=== PATIENT | male | born 1960 | race Caucasian/White ===

== ENCOUNTER 2024-05-06 13:46 | Outpatient (CLI) | payer OTHER, SELFPAY ==
--- NOTE | ~2024-05-06 | XR_ITS ---
EXAMINATION: XR abdomen/kub 1V DATE: 05/06/2024 14:02 INDICATION: Left ureteral stone. TECHNIQUE: A supine view of the abdomen on 2 radiographs was obtained. COMPARISON: CT abdomen and pelvis 04/01/2019, abdomen radiographs 04/01/2019 FINDINGS: There are no dilated loops of bowel. There are phleboliths in the pelvis. There is a modera te-sized hiatal hernia. IMPRESSION: 1. No visible urolithiasis. 2. Moderate-sized hiatal hernia. Reviewed, dictated and finalized at location A. FACTURING OPERATIONS MANAGER
--- OUTSIDE RECORDS SUMMARY | 2024-05-06 13:55 | XMS_ITS | Patient Health Record ---
Author Organization [facility] Address [address] [facility] [address] [place] [address] Care Team Providers Care Passenger Screener Name Role Phone Macario Patel MD Primary Care Provider Unavail able Krishna Burton Unavailable [phone] Dedra Joiner Unavailable [phone] Allergies Allergen (clinical drug ingredient) Drug/Non Drug Allergy documented on EMR Reaction Allergy Type Onset Date Status Penicillins rash Drug Allergy Activ e Results Component Value Reference Range Notes CMP: COMPLETE METABOLIC PANE L Reviewed date:03/30/2024 02:44:34 PM Interpretation: Performing Lab: Notes/Report: CBC With Differential/Platel et Reviewed date:03/30/2024 02:47:26 PM Interpretation: Performing Lab: Notes/Report: Reason For Referral No Information Medications Medication SIG (Take, Route, Frequency, Duration) Notes Start Date End Date Status PriLOSEC 20 MG 1 capsule Orally Onc e a day Active Mercaptopurine 50 MG TAKE 3 TABLETS BY MOUTH EVERY DAY for 90 Active OTC/Vitamins Claritin, Vit D, Vit B12 Active amLODIPine Besylate Active Mesalamine 1.2 GM TAKE 2 TABLETS BY MOUTH EVERY DAY for 90 Active Atorvastatin Calcium Active Celecoxib Active Immunizations Vaccine Route Administration Date Status Comme nts Influenza Vaccination Unknown 12/15/2017 Administered Social History Tobacco Use: Social History Observation Description Date Details (start date - stop date) Former Smoker NA - NA Tobacco Use/Smoking Question Answer Notes Are you a former smoker How long has it been since you last smoked? > 10 years Section Notes: Christianson, retired, , 3 children from a blended family Christianson, retired, , 3 children from a blended family Christianson, retired, , 3 children from a blended family Christianson, retired, , 3 children from a blended family Christianson, retired, , 3 children from a blended family Problems Problem Type SNOMED Code ICD Code Onset Dates Problem Status W/U Status Risk Notes Problem 27909051 Crohn's disease of small intestine with intestinal obstruction (K50.012) Active confirmed Problem 07512056 Crohns colitis, unspecified complication (K50.119) Active confirmed Problem 83460977 Crohn's disease of small intestine without complication (K50.00) Active confirmed Problem 734587457 History of colon polyps (Z86.010) Active confirmed Problem 696834313 Chronic GERD (K21.9) Active confirmed Maintained on Prilosec without any difficulties. Remote endoscopy revealed no evidence of Novoa's esophagus. He will become symptomatic without the medication. Problem 27602416 Crohns disease of both small and large intestine without complication (K50.80) Active confirmed History of Crohn's disease diagnosed in 1996. His last colonoscopy took place in October 2016 and revealed ileitis. Small bowel series was obtained at that time and was also normal. He has been maintained on mercaptopurine and Lialda without any difficulties. Labs obtained last week were normal. Problem Crohn's disease of large bowel (9509276) CC (Crohns colitis), without complications (K50.10) Active confirmed Problem 284499015 Hepatic steatosis (K76.0) Active confirmed Problem 408201089 Malabsorption (K90.9) Active confirmed Encounters Encounter Location Date Provider Diagnosis [facility], [address] [place] [address] 08/15/2023 Dedra Joiner Crohns disease of talita th small and large intestine without complication K50.80 [facility], [address] [place] [address] 08/15/2023 Krishna Burton [facility], [address] [place] [address] 03/30/2024 Krishna Micheal Assessments Encounter Date Diagnosis (ICD Code) Assessment Notes Treatment Notes Treatment Clinical Notes Section Notes 08/15/2023 Crohns disease of both small and large intestine without complication (ICD-10 - K50.80) History of Crohn's disease diagnosed in 1996. His last colonoscopy took place in October 2016 and revealed ileitis. Small bowel series was obtained at that time and was also normal. He has been maintained on mercaptopurine and Lialda without any difficulties. Labs obtained last week were normal. Plan Of Treatment Pending Test Test Name Order Date Colonoscopy 10/01/2016 Colonoscopy 11/24/2020 CMP: COMPLETE METABOLIC PANEL 12/19/2015 CBC With Differential/Platelet 6 Future Test Test Name Order Date CMP: COMPLETE METABOLIC PANEL 11/16/2023 CBC With Differential/Platelet 4 Insurance Providers Payer Name Payer Address Payer Phone Subscriber Number Group Number Insured Name Patient Relationship to Insured Coverage Start Date Coverage End Date [facility] Choice/ choice Plus [id number] [address] [place] [address] [id number] Kalee Ritchie Spouse - patient is the spouse of the insured Medical (General) History Medical History History ICD Code GERD Crohn's Disease Colon Polyps Kidney Stones Shingles Skin Cancer Hypertension Surgical History Surgery Date(Month/Year) Colonoscopy:Ileitis at the anastomosis.O therwise normal. 01/2021 Flexible sigmoidoscopy:Statu s post subtotal colectomy, ileocolonic anastomosis at 25 centimeters.Mild erythema to the rectosigmoid colon. 01/2013 EGD: Normal exam. 07/2007 Ileocolonic Resection Kidney stones/cystoscopy Knee surgery
--- OUTSIDE RECORDS SUMMARY | 2024-05-06 13:55 | XMS_ITS | Encounter Summary ---
[facility] Address [address] [place] [address] Care Team Providers Care Design Release Engineer Name Role Phone Unavailable Primary Care Provider Unavailabl e Encounter Details Date Type Department Care Team (Late st Contact Info) Description 12/22/2001 Outpatient Historical [facility] Bia Rubio MD [address] [facility] [address] [place] [address] REGIONAL ENTERITIS NOS (CMS/HCC) (Primary Dx) Social History Tobacco Use Types Packs/Day Years Used Date Smoking Tobacco: Never Assessed Sex and Gender Information Value Date Recorded Sex Assigned at Not on file Legal Sex Male 4:47 AM [employer]ICULAR AC[employer] Gender Identity Not on file Sexual Orientation Not on file documented as of this encounter Plan of Treatment Not on file documented as of this encounter Visit Diagnoses Diagnosis Regional enteritis of unspecified site (CMS/HCC)- Primary Regional enteritis of unspecified site documented in this encounter
--- OUTSIDE RECORDS SUMMARY | 2024-05-06 13:55 | XMS_ITS | Clinical Summary ---
Author Organization [facility] Address [facility] [place] [address] Care Team Providers Care Commercial Loan Processor Name Role Phone Macario Patel MD Primary Care Provider [phone] Allergies Active Allergy Reactions Criticality Noted Date Comments Milk (Cow) Diarrhea 04/29/2012 Penicillins Rash Low 04/29/2012 Medications mercaptopurine 50 MG tablet Take 1.5 tablets (75 mg total) by mouth daily. 0 04/22/19 19 Active mesalamine EC (LIALDA) 1.2 g Tab EC tablet Take 2 tablets (2.4 g total) by mouth daily with breakfast. Active vitamin D3, cholecalciferol, 5000 UNITS capsule Take 1 capsule (125 mcg total) by mouth daily. Active omeprazole 20 MG capsule Take 1 capsule (20 mg total) by mouth daily. Active aspirin 81 MG chewable tabletIndications :Hypertension, benign,Mixed hyperlipidemia Chew 1 tablet (81 mg total) by mouth daily. 30 tablet 5 07/10/19 19 Active clobetasol (TEMOVATE) 0.05 % ointment Apply topically 2 (two) times daily. 06/07/19 23 Active celecoxib (CELEBREX) 100 MG capsuleIndication s:Chronic pain Take 1 capsule (100 mg total) by mouth daily. 90 capsule 3 05/22/19 24 Active Cyanocobalamin (VITAMIN B-12) [address] 1 tablet under the tongue daily. Active loratadine (CLARITIN) 10 MG tablet Take 1 tablet (10 mg total) by mouth daily. Active atorvastatin (LIPITOR) 20 MG tabletIndications :Mixed hyperlipidemia Take 1 tablet (20 mg total) by mouth nightly at bedtime. 08/26/19 24 Active sildenafil (VIAGRA) 50 MG tablet Take 1 tablet (50 mg total) by mouth as needed for Erectile Dysfunction. 02/10/20 24 Active tamsulosin (FLOMAX) 0.4 MG Cap Take 1 capsule (0.4 mg total) by mouth daily. 30 capsule 03/23/19 25 Active HYDROcodone-aceta minophen (NORCO) 5-325 MG tabletIndications :Acute Pain < 3 Day Supply Take 1 tablet by mouth every 6 (six) hours as needed. Indications: Acute Pain < 3 Day Supply 12 tablet 03/23/19 25 Active ondansetron (ZOFRAN-ODT) 4 MG disintegrating tablet Take 1 tablet (4 mg total) by mouth every 8 (eight) hours as needed. 20 tablet 03/23/19 25 Active atorvastatin (LIPITOR) 10 MG tabletIndications :Mixed hyperlipidemia TAKE 1 TABLET BY MOUTH EVERY DAY 90 tablet 04/21/19 25 Active amLODIPine (NORVASC) 5 MG tabletIndications :Hypertension, benign TAKE 1 TABLET BY MOUTH EVERY DAY 90 tablet 1 04/21/19 25 Active amLODIPine (NORVASC) 5 MG tabletIndications :Hypertension, benign take 1 tablet by mouth every day 90 tablet 1 10/20/19 24 025 Discontinued Active Problems Problem Noted Date Diagnosed Date Kidney stone 03/26/2024 Chronic GERD 12/15/2019 Kidney stones 02/09/2019 Class 1 obesity due to exces s calories with serious comorbidity and body mass index (BMI) of 31.0 to 31.9 in adult 02/09/2019 Hypertension, benign 10/06/2017 Vitamin D deficiency 12/05/2015 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 [address] [place] [address] Blair Barber MD Butler, Sarah Elyse S, CRISTIAN 03/26/2024 1:45 PM OUTSOLE FLEXER - 03/26/2024 3:14 PM OUTSOLE FLEXER Surgery [facility] [place] [address] Kofi Mcrae MD CYSTOSCOPY URETEROSCOPY, STONE EXTRACTION, LASER LITHOTRIPSY, LEFT URETERAL STENT PLACEMENT 03/26/2024 4:24 AM OUTSOLE FLEXER - 03/27/2024 10:55 AM OUTSOLE FLEXER [facility] [address] [place] [address] Bea Lora MD Tran, Isaac T, MD Kruse, Sumit Polanco, DO Discharge Disposition: Home or Self Care (Routine Discharge) 03/25/2024 8:46 PM OUTSOLE FLEXER - 03/26/2024 2:43 AM OUTSOLE FLEXER Emergency [facility] Emergency Room [address] [place] [address] Butch Newton MD Flank Pain Discharge Disposition: Transfer to Acute Care Hospital 03/25/2024 Travel 03/23/2024 1:30 PM OUTSOLE FLEXER - 03/23/2024 2:48 PM OUTSOLE FLEXER Emergency [facility] Emergency Room [address] [place] [address] Annette Loya NP Flank Pain (Left flank pain ) Discharge Disposition: Home or Self Care (Routine Discharge) 03/23/2024 Travel 03/08/2024 Telephone [facility] Family & Internal Medicine [address] [phone] Macario Patel MD Advice 02/19/2024 8:20 AM OUTSOLE FLEXER Office Visit [facility] Family & Internal [address] [phone] Macario Patel MD Follow Up; Hyperlipidemia; Hypertension; Vitamin D Deficiency 02/19/2024 Travel from Last 3 Months Immunizations Name Administration Dates Next Due Arexvy Respiratory Syncytial Virus (RSV, adjuvanted) 0.5 mL, PF 02/19/2024 FLUCELVAX (ccIIV3, TRIVALENT, 0.5mL) 01/15/2024 Fluzone 6 Months+ Quad (0.5 mL Prefilled Syringe) 01/09/2023,01/03/2022,01/12/2021 Influenza (Generic) 12/24/2018,02/15/2016 Influenza Adult (Generic) 01/03/2020,12/04/2017 PFIZER COVID-19 (12+) MRNA, LNP-S, PF, HOLDEN-SUCROSE, 30 MCG/0.3 ML (COMIRNATY) 02/19/2024 PFIZER COVID-19 BIVALENT (12 +) mRNA, LNP-S, PF, 30 MCG/0.3 ML DOSE 01/03/2022 Tdap (Adacel) 07/10/2022 Family History Medical History Relation Comments Heart Disease Brother Cancer Father skin Heart Disease Father Lung Cancer Father Breast Cancer Mother Relation Status Comments Brother Father Mother Alive Sister Alive Social History Tobacco Use Types Packs/Day Years Used Date Smoking Tobacco: Former Cigarettes 1 15 0 03/17/1975 - 03/17/1990 Passive Smoke Exposure: Never Smokeless Tobacco: Never Tobacco Cessation:Counseling Given: Yes Alcohol Use Standard Drinks/Week Comments No 0 (1 standard drink = 0.6 oz pur e alcohol) [facility] [employer] Answer Date Recorded In the past 12 months has [facility] [employer], oil, or water [employer] threatened to shut off services in your home? No 03/26/2024 Humiliation, Afraid, Rape, and Kick questionnair e Answer Date Recorded Within the last year, have y ou been afraid of your partner or ex-partner? No 03/26/2024 Within the last year, have y ou been humiliated or emotionally abused in other ways by your partner or ex-partner? No Within the last year, have y ou been kicked, hit, slapped, or otherwise physically hurt by your partner or ex-partner? No 03/26/2024 Within the last year, have y ou been raped or forced to have any kind of sexual activity by your partner or ex-partner? No 03/26/2024 AUDIT-C Answer Date Recorded Frequency of Alcohol Consumption Never 07/09/2018 Average Number of Drinks Not on file 019 Frequency of Binge Drinking Not on file 06/16 Overall Financial Resource Strain (CARDIA) Answe r Date Recorded How hard is it for you to pa y for the very basics like food, housing, medical care, and heating? Not hard at all 03/26/2024 PHQ-2 Answer Date Recorded Patient Health Questionnaire-2 Score 0 08/14/2023 Hunger Vital Sign Answer Date Recorded Within the past 12 months, y ou worried that your food would run out before you got the money to buy more. Never true 03/26/19 25 Within the past 12 months, t he food you bought just didn't last and you didn't have money to get more. Never true 03/26/2024 PRAPARE - Transportation Answer Date Re corded In the past 12 months, has l ack of transportation kept you from medical appointments or from getting medications? No 03/17 In the past 12 months, has l ack of transportation kept you from meetings, work, or from getting things needed for daily living? No 03/26/2024 Housing Stability Vital Sign Answer Carlos e Recorded In the last 12 months, was t here a time when you were not able to pay the mortgage or rent on time? No 03/26/2024 In the past 12 months, how m any times have you moved where you were living? 0 03/26/2024 At any time in the past 12 m [facility], were you homeless or living in a usp (including now)? No 03/26/2024 Sex and Gender Information Value Date Recorded Sex Assigned at Male 07/09/2018 8:33 AM CDT Legal Sex Male 5:25 PM CDT Gender Identity Male 07/09/2018 8:33 AM CDT Sexual Orientation Straight 07/09/2018 8: 33 AM CDT Last Filed Vital Signs Vital Sign Reading Time Taken Comments Blood Pressure 144/99 03/27/2024 7:28 AM OUTSOLE FLEXER Pulse 63 03/27/2024 7:28 AM OUTSOLE FLEXER Temperature 36.4 C (97.5 F) 03/27/2024 7:28 AM OUTSOLE FLEXER Respiratory Rate 16 03/27/2024 7:28 AM OUTSOLE FLEXER Oxygen Saturation 94% 03/27/2024 7:28 AM OUTSOLE FLEXER Inhaled Oxygen Concentration - - Weight 97.6 kg (215 lb 2.7 oz) 03/26/2024 1:00 P M OUTSOLE FLEXER Height 177.8 cm (5' 10 ) 03/26/2024 1:00 PM OUTSOLE FLEXER Body Mass Index 30.87 03/26/2024 1:00 PM OUTSOLE FLEXER Plan of Treatment Upcoming Encounters Date Type Department Care Team (Late st Contact Info) Description 08/19/2024 7:20 AM CDT Laboratory Only [facility] Family & Internal Medicine [address] [phone] Macario Patel MD [address] [place] [phone] 08/26/2024 8:20 AM CDT Office Visit [facility] Family & Internal [address] [phone] Macario Patel MD [address] [place] [phone] Health Maintenance Due Date Last Done Comments Annual Physical 02/27/1963 Zoster Vaccines (1 of 2) 02/27/2010 PHQ-2 (Physician [place]) 03/17/2024 08/14/2023 DTaP, Tdap and Td Vaccines (2 - Td or Tdap) 07/10/2032 07/10/2022 Colorectal Cancer Screening Colonoscopy (10 Years) 03/05/2033 03/05/2023 Hepatitis C Completed 01/09/2023 Influenza Adult Completed 01/15/2024, 12/16, 01/03/2022, Additional history exists COVID-19 Vaccine Completed 02/19/2024, , 07/03/2020, Additional history exists RSV Immunization or 60+ Years Completed 02/19/2024 Meningococcal B Vaccine Aged Out No l onger eligible based on patient's age to complete this topic Meningococcal Vaccine Aged Out No alli mirella eligible based on patient's age to complete this topic Pneumococcal Vaccine: Pediatrics (0 to 5 Years) and At-Risk Patients (6 to 64 Years) Aged Out No longer eligible based on patient's age to complete this topic RSV Immunizations Under 20 Months Aged Out No longer eligible based on patient's age to complete this topic Goals Goal Patient Goal Type Associated Problems Recent Progress Patient-Stated? Author Family - family caregiver with be involved in care transitions and discharge planning Lifestyle No Maria Luisa Dallas, TRANSFER TABLE OPERATORmaterial handling supervisor Devices Implanted Type Area Premium Service Representative Device Identifier Shelf Expiration Date Model / Serial / Lot Stent Ureteral 6fr 26cm Pigtl Crv Taper Tip Bldr Mrk - [id number] Implanted:Qty : 1 on 03/26/2024 by Kofi Mcrae MD at [facility] Stent Left: Ureter waygum [id number] 09/01/2026 [id number] / / [id number] Procedures Procedure Name Priority Date/Time Associated Diagnosis Comments BASIC METABOLIC PANEL Routine 03/27/2024 4:15 AM OUTSOLE FLEXER CBC W/DIFF AUTOMATED Routine 03/27/2024 4:15 AM OUTSOLE FLEXER SURG XR RETROGRD UROGRAPHY Routine 03/26/2024 3:07 PM OUTSOLE FLEXER STONE ANALYSIS Routine 03/26/2024 2:59 PM OUTSOLE FLEXER CYSTOSCOPY URETEROSCOPY, STONE EXTRACTION, HOLMIUM LASER, STENT 03/26/2024 2:08 PM OUTSOLE FLEXER LEFT URETERAL STONE MAGNESIUM Routine 03/26/2024 6:16 AM OUTSOLE FLEXER COMPREHENSIVE METABOLIC PANEL Routine 03/26/2024 6:16 AM OUTSOLE FLEXER CBC W/DIFF AUTOMATED Routine 03/26/2024 6:16 AM OUTSOLE FLEXER HC URINALYSIS AUTO W/O MICRO STAT 03/25/2024 9:[address] ABD+PEL KIDNEY STONE STAT 03/25/2024 9:26 PM OUTSOLE FLEXER COMPREHENSIVE METABOLIC PANEL STAT 03/25/2024 9:10 PM OUTSOLE FLEXER CBC W/DIFF AUTOMATED STAT 03/25/2024 9:10 PM OUTSOLE FLEXER URINE BACTERIA CULTURE STAT 1:56 PM OUTSOLE FLEXER HC URINALYSIS AUTO W/O MICRO STAT 03/23/2024 1:56 PM OUTSOLE FLEXER LIPASE STAT 03/23/2024 1:56 PM OUTSOLE FLEXER COMPREHENSIVE METABOLIC PANEL STAT 03/23/2024 1:56 PM OUTSOLE FLEXER CBC W/DIFF AUTOMATED STAT 03/23/2024 1:[address] ABD+PEL KIDNEY STONE STAT 03/23/2024 1:54 PM OUTSOLE FLEXER COLONOSCOPY GENERIC (SCAN ORDER) 03/05/2023 HEPATITIS C ANTIBODY Routine 01/09/2023 9:28 AM CDT Need for hepatitis C screening test from Last 3 Months or Most Recently Relevant to Health Maintenance Results * (ABNORMAL) BASIC METABOLIC PANEL (03/27/2024 4:15 AM OUTSOLE FLEXER) GLUCOSE 84 70 - 99 MG/DL 03/27/2024 5:02 AM OUTSOLE FLEXER [facility] BUN 25(H) 7 - 18 MG/DL 03/27/2024 5:02 AM OUTSOLE FLEXER [facility] CREATININE S/P/B 0.82 0.7 - 1.3 MG/DL 03/27/2024 5:02 AM OUTSOLE FLEXER [facility] SODIUM S/P/B 137 136 - 145 MMOL/L 03/27/2024 5:02 AM OUTSOLE FLEXER [facility] POTASSIUM S/P/B 3.8 3.5 - 5.1 MMOL/L 03/27/2024 5:02 AM [facility] CHLORIDE S/P/B 105 97 - 115 MMOL/L 03/27/2024 5:02 AM [facility] CO2 25.9 21 - 32 MMOL/L 03/27/2024 5:02 AM [facility] CALCIUM S/P/B 8.8 8.5 - 10.1 MG/DL 03/27/2024 5:02 AM [facility] ANION GAP 6.1 2 - 10 MMOL/L 03/27/2024 5:02 AM [facility] BUN CREATININE RATIO 30.5(H) 6 - 26 03/27/2024 5:02 AM [facility] GFR ESTIMATE >90 >90 ML/MIN/1.7 3 M2 03/27/2024 5:02 AM [facility] Comment: NOTE: eGFR is not calculated for patients <18 years of age or gender unknown. This is an estimated GFR calculation using the new CKD EPI creatinine equation without race and so does not require a correction factor for race. This estimated GFR should not be used for calculating drug doses. 03/27/2024 4:15 AM [facility] Pernell Westfall MD LABORATORY Final Result [facility] [address] [place] [address], * (ABNORMAL) CBC W/DIFF AUTOMATED (03/27/2024 4:15 AM OUTSOLE FLEXER) Only the most recent of4 resultswithin the time period is included. WBC 6.20 4.5 - 11.0 x10'3/uL 03/27/2024 4:31 AM [facility] RBC 4.36(L) 4.70 - 6.10 x10'6/uL 03/27/2024 4:31 AM [facility] HGB 13.7(L) 14.0 - 18.0 G/DL 03/27/2024 4:31 AM [facility] HCT 40.6(L) 43.0 - 54.0 % 03/27/2024 4:31 AM [facility] MCV 93.1 80.0 - 94.0 FL 03/27/2024 4:31 AM [facility] MCH 31.4(H) 27.0 - 31.0 PG 03/27/2024 4:31 AM [facility] MCHC 33.7 32.0 - 36.0 G/DL 03/27/2024 4:31 AM [facility] RDW 14.0 11.5 - 14.5 % 03/27/2024 4:31 AM [facility] PLT 164 130 - 400 x10'3/uL 03/27/2024 4:31 AM [facility] MPV 9.9 9.3 - 12.2 FL 03/27/2024 4:31 AM [facility] DIFFERENTIAL TYPE AUTOMATED DIFFERENTIAL 03/27/2024 4:31 AM [facility] NEUTROPHILS % 72.5 % 03/27/2024 4:31 AM [facility] LYMPHOCYTES % 12.7 % 03/27/2024 4:31 AM [facility] MONOCYTES % 11.9 % 03/27/2024 4:31 AM [facility] EOSINOPHILS 2.1 % 03/27/2024 4:31 AM [facility] BASOPHILS 0.5 % 03/27/2024 4:31 AM [facility] IMMATURE GRANS % 0.3 % 03/27/19 4:31 AM [facility] ABS. NEUTROPHILS 4.49 1.80 - 7.70 x10'3/uL 03/27/2024 4:31 AM OUTSOLE FLEXER [facility] ABS. LYMPHOCYTES 0.79(L) 1.00 - 4.80 x10'3/uL 03/27/2024 4:31 AM OUTSOLE FLEXER [facility] ABS. MONOCYTES 0.74 0.30 - 0.82 x10'3/uL 03/27/2024 4:31 AM OUTSOLE FLEXER [facility] ABS. EOSINOPHILS 0.13 0.04 - 0.54 x10'3/uL 03/27/2024 4:31 AM OUTSOLE FLEXER [facility] ABS. BASOPHILS 0.03 0.01 - 0.08 x10'3/uL 03/27/2024 4:31 AM OUTSOLE FLEXER [facility] ABS. IMMATURE GRANULOCYTES 0.02 0.00 - 0.49 x10'3/uL 03/27/2024 4:31 AM OUTSOLE FLEXER [facility] 03/27/2024 4:15 AM OUTSOLE FLEXER Pernell Westfall MD LABORATORY Final Result [facility] [address] [place] [address], [place] [phone] * SURG XR RETROGRD UROGRAPHY (03/26/2024 3:07 PM OUTSOLE FLEXER) Anatomical Region Laterality Modality Abdomen Radiographic Barbara ging 03/26/2024 3:09 PM OUTSOLE FLEXER Impressions 03/26/2024 3:09 PM OUTSOLE FLEXER Impression: No radiologic interpretation will be issued. The report and documentation of this exam will reside in the patient's permanent medical record and in the attending physician's procedure note. Ordered By: KOFI MCRAE Interpreted By: Rene Dunham MD, 03/26/2024 3:09 PM Narrative 03/26/2024 3:09 PM OUTSOLE FLEXER [place] [address] FLUOROSCOPY CONTROL ONLY Procedure Note Rene Dunham MD - 03/26/2024 [place] [address] FLUOROSCOPY CONTROL ONLY Impression: No radiologic interpretation will be issued. The report and documentationof this exam will reside in the patient's permanent medical record and inthe attending physician's procedure note. Ordered By: KOFI MCRAE Interpreted By: Rene Dunham MD, 03/26/2024 3:09 PM Kofi Mcrae MD IMAGES ONLY Final Result * STONE ANALYSIS (03/26/2024 2:59 PM OUTSOLE FLEXER) SOURCE KIDNEY STONE 03/26/2024 3:01 PM OUTSOLE FLEXER [facility] STONE ANALYSIS COMPONENT REPORT 04/01/2024 6:10 PM OUTSOLE FLEXER [employer] Comment: Calcium Oxalate Monohydrate (Whewellite) 90% Calcium Oxalate Dihydrate (Weddellite) 10% Unable to photograph, tiny stone submitted. STONE ANALYSIS WEIGHT 0.001 g 04/01/2024 6:10 PM OUTSOLE FLEXER [employer]NA[employer] Comment: This test was developed and its analytical performance characteristics have been determined by [employer]. It has not been cleared or approved by FDA. This assay has been validated pursuant to the CLIA regulations and is used for clinical purposes. Test performed by [employer] [id number] [place] [address] Lumber Grader: Kanwal Addison MD,PHD,CRISTOPHER Test Reported by Lizzeth Ulloa, [facility], [address] [place], [place] Josue Mejia M.D., Ph.D., Director of Laboratories , [facility] [id number] STONE CALCULUS SPECIMEN / Unknown 03/26/2024 2:59 PM OUTSOLE FLEXER Kofi Mcrae MD BODY FLUIDS AND STOOLS ORDERABL ES Final Result [employer] [facility] [address] [place], [place] , [place] [phone] [facility] [address] [place] [id number], [place] [phone] * (ABNORMAL) COMPREHENSIVE METABOLIC PANEL (03/26/2024 6:16 AM OUTSOLE FLEXER) Only the most recent of3 resultswithin the time period is included. GLUCOSE 95 70 - 99 MG/DL 03/26/2024 6:57 AM [facility] BUN 26(H) 7 - 18 MG/DL 03/26/2024 6:57 AM [facility] CREATININE S/P/B 1.17 0.7 - 1.3 MG/DL 03/26/2024 6:57 AM [facility] SODIUM S/P/B 138 136 - 145 MMOL/L 03/26/2024 6:57 AM [facility] POTASSIUM S/P/B 3.8 3.5 - 5.1 MMOL/L 03/26/2024 6:57 AM [facility] CHLORIDE S/P/B 108 97 - 115 MMOL/L 03/26/2024 6:57 AM [facility] CO2 25.4 21 - 32 MMOL/L 03/26/2024 6:57 AM [facility] CALCIUM S/P/B 8.9 8.5 - 10.1 MG/DL 03/26/2024 6:57 AM [facility] BILIRUBIN TOTAL S/P/B 1.6(H) 0.2 - 1.2 MG/DL 03/26/2024 6:57 AM [facility] Comment: THIS ASSAY IS NOT RECOMMENDED FOR PATIENTS UNDERGOING TREATMENT WITH ELTROMBOPAG DUE TO THE POTENTIAL FOR FALSELY ELEVATED RESULTS. TOTAL PROTEIN S/P/B 6.8 6.4 - 8.2 G/DL 03/26/2024 6:57 AM [facility] ALBUMIN S/P/B 3.2(L) 3.4 - 5.0 G/DL 03/26/2024 6:57 AM [facility] AST 23 15 - 37 U/L 03/26/2024 6:57 AM [facility] ALT 36 16 - 60 U/L 03/26/2024 6:57 AM [facility] ALKALINE PHOSPHATASE S/P/B 50 50 - 136 U/L 03/26/2024 6:57 AM [facility] ANION GAP 4.6 2 - 10 MMOL/L 03/26/2024 6:57 AM [facility] BUN CREATININE RATIO 22.2 6 - 26 03/26/2024 6:57 AM [facility] A/G RATIO 0.9(L) 1.0 - 2.0 RATIO 03/26/2024 6:57 AM [facility] GFR ESTIMATE 70(L) >90 ML/MIN/1.7 3 M2 03/26/2024 6:57 AM [facility] Comment: NOTE: eGFR is not calculated for patients <18 years of age or gender unknown. This is an estimated GFR calculation using the new CKD EPI creatinine equation without race and so does not require a correction factor for race. This estimated GFR should not be used for calculating drug doses. 03/26/2024 6:16 AM OUTSOLE FLEXER Bea Lora MD LABORATORY Final Re sult Performing Organization Address City/[facility]/ZIP Co de Phone Number [facility] [address] [place] [address], [place] [phone] * MAGNESIUM (03/26/2024 6:16 AM OUTSOLE FLEXER) MAGNESIUM 2.2 1.8 - 2.4 MG/DL 03/26/2024 6:57 AM OUTSOLE FLEXER [facility] 03/26/2024 6:16 AM OUTSOLE FLEXER Bea Lora MD LABORATORY Final Yuridia rousseaut Performing Organization Address [facility] Co de Phone Number [facility] [address] [place] [address], [place] [phone] * (ABNORMAL) URINALYSIS (03/25/2024 9:30 PM OUTSOLE FLEXER) Only the most recent of2 resultswithin the time period is included. COLOR (U) YELLOW 03/25/2024 9:52 PM OUTSOLE FLEXER [facility] TRANSPARENCY CLEAR 03/25/2024 9:52 PM OUTSOLE FLEXER [facility] SPECIFIC GRAVITY (U) 1.025 1.003 - 1.030 03/25/2024 9:52 PM OUTSOLE FLEXER [facility] U PH 7.0 5.0 - 9.0 03/25/2024 9:52 PM OUTSOLE FLEXER [facility] LEUKOCYTES (U) NEGATIVE NEGATIVE 03/25/2024 9:52 PM OUTSOLE FLEXER [facility] NITRITES NEGATIVE NEGATIVE 03/25/2024 9:52 PM [facility] PROTEIN RANDOM (U) 1+(A) NEGATIVE 03/25/2024 9:52 PM OUTSOLE FLEXER [facility] GLUCOSE (U) NORMAL NORMAL 03/25/2024 9:52 PM OUTSOLE FLEXER [facility] KETONES MG/DL (U) 1+(A) NEGATIVE 03/25/2024 9:52 PM OUTSOLE FLEXER [facility] UROBILINOGEN NORMAL NORMAL MG/DL 03/25/2024 9:52 PM OUTSOLE FLEXER [facility] BILIRUBIN (U) NEGATIVE NEGATIVE 03/25/2024 9:52 PM OUTSOLE FLEXER [facility] BLOOD (U) 2+(A) NEGATIVE 03/25/2024 9:52 PM OUTSOLE FLEXER [facility] MUCUS PRESENT 03/25/2024 9:52 PM OUTSOLE FLEXER [facility] WBC/HPF 0-5 0 - 5 /HPF 03/25/2024 9:52 PM OUTSOLE FLEXER [facility] RBC/HPF 10-20 0 - 5 /HPF 03/25/2024 9:52 PM OUTSOLE FLEXER [facility] COMMENT (U) URINE RESULTS 03/25/2024 9:52 PM OUTSOLE FLEXER [facility] URINE SPECIMEN OBTAINED BY CLEAN CATCH PROCEDURE / Unknown 03/25/2024 9:30 PM OUTSOLE FLEXER us Butch Newton MD URINE ORDERABLES Final Result Performing Organization Address City/State/[facility] Co de Phone Number [facility] [address] [place] [address], * CT ABD+PEL KIDNEY STONE (03/25/2024 9:26 PM OUTSOLE FLEXER) Only the most recent of2 resultswithin the time period is included. Anatomical Region Laterality Modality Abdomen Computed Tomogra phy 03/25/2024 9:29 PM OUTSOLE FLEXER Impressions 03/25/2024 9:40 PM OUTSOLE FLEXER IMPRESSION: 1. Mild-moderate left hydroureteronephrosis with obstructing left distal ureteral stone, 4 mm. Findings are similar to CT 03/23/2024. Associated urinary tract infection is possible and clinical correlation is recommended. 2. Moderate-large colonic stool burden adjacent to area of prior resection. 3. Additional findings as above. Referred By: Interpreted By: Krishan Kovacs MD, 03/25/2024 9:29 PM Narrative 03/25/2024 9:40 PM OUTSOLE FLEXER [address] [address] [place] [address] EXAMINATION: CT Abdomen and Pelvis without contrast EXAM DATE/TIME: 03/25/2024 9:09 PM REASON FOR EXAM: 64 years of age, Male, with L flank pain, recent renal stone COMPARISON: CT abdomen pelvis 03/23/2024 TECHNIQUE: Axial CT images of the abdomen were obtained without the use of IV contrast agent. Subsequent coronal and sagittal reformatted sequences are created for evaluation. A dose lowering technique was used for this procedure, which may include, but is not limited to, dose reduction technique, automated exposure control, iterative reconstruction, ALARA (As Low As Reasonably Achievable), or Image Gently techniques. FINDINGS: Lower chest: No mass or airspace consolidation is seen in the visualized lung bases. No pleural effusion is seen. No cardiomegaly. Large hiatal hernia. Liver/biliary: The liver is steatotic and smooth in surface contour. No definite focal liver lesions are seen. Gallbladder is unremarkable. No biliary dilatation is seen. Pancreas/adrenals/spleen: Unremarkable. Genitourinary: Mild bilateral nonspecific perinephric stranding. There is mild/moderate left hydroureteronephrosis with obstructing stone in the left distal ureter measuring 4 mm, similar to prior. Punctate left nephrolithiasis. No definite renal mass lesion is seen. The urinary bladder is within normal limits. The prostate is enlarged. Bowel: Postoperative changes in the colon. Moderate-large colonic stool burden adjacent to area of prior resection. No bowel obstruction or inflammatory change is seen in the visualized aspects. There is no evidence of appendicitis. Peritoneum: No free fluid is seen. No free air is seen. Lymph nodes: No lymphadenopathy is seen. Musculoskeletal: No acute fracture or suspicious osseous lesion is seen. Procedure Note Krishan Kovacs MD - 03/25/2024 [facility] [address] [place] [address] EXAMINATION: CT Abdomen and Pelvis without contrast EXAM DATE/TIME: 03/25/2024 9:09 PM REASON FOR EXAM: 64 years of age, Male, with L flank pain, recent renalstone COMPARISON: CT abdomen pelvis 03/23/2024 TECHNIQUE: Axial CT images of the abdomen were obtained without the useof IV contrast agent. Subsequent coronal and sagittal reformattedsequences are created for evaluation. A dose lowering technique was usedfor this procedure, which may include, but is not limited to, dosereduction technique, automated exposure control, iterative reconstruction,ALARA (As Low As Reasonably Achievable), or Image Gently techniques. FINDINGS: Lower chest: No mass or airspace consolidation is seen in the visualizedlung bases. No pleural effusion is seen. No cardiomegaly. Large hiatalhernia. Liver/biliary: The liver is steatotic and smooth in surface contour. Nodefinite focal liver lesions are seen. Gallbladder is unremarkable. Nobiliary dilatation is seen. Pancreas/adrenals/spleen: Unremarkable. Genitourinary: Mild bilateral nonspecific perinephric stranding. There ismild/moderate left hydroureteronephrosis with obstructing stone in theleft distal ureter measuring 4 mm, similar to prior. Punctate leftnephrolithiasis. No definite renal mass lesion is seen. The urinarybladder is within normal limits. The prostate is enlarged. Bowel: Postoperative changes in the colon. Moderate-large colonic stoolburden adjacent to area of prior resection. No bowel obstruction orinflammatory change is seen in the visualized aspects. There is noevidence of appendicitis. Peritoneum: No free fluid is seen. No free air is seen. Lymph nodes: No lymphadenopathy is seen. Musculoskeletal: No acute fracture or suspicious osseous lesion is seen. IMPRESSION: 1. Mild-moderate left hydroureteronephrosis with obstructing left distalureteral stone, 4 mm. Findings are similar to CT 03/23/2024. Associatedurinary tract infection is possible and clinical correlation isrecommended. 2. Moderate-large colonic stool burden adjacent to area of priorresection. 3. Additional findings as above. Referred By: Interpreted By: Krishan Kovacs MD, 03/25/2024 9:29 PM Butch Newton MD CT Final Result * CULTURE URINE (03/23/2024 1:56 PM OUTSOLE FLEXER) SPEC DESCRIPTION URINE CLEAN CATCH 03/23/2024 1:56 PM OUTSOLE FLEXER [facility] SPECIAL REQUESTS NO SPECIAL REQUEST 03/23/2024 1:56 PM OUTSOLE FLEXER [facility] CULTURE RESULT NO GROWTH 2 DAYS 03/26/2024 6:44 AM OUTSOLE FLEXER [facility] URINE SPECIMEN OBTAINED BY CLEAN CATCH PROCEDURE / Unknown 03/23/2024 1:56 PM OUTSOLE FLEXER 03/23/2024 1:58 PM OUTSOLE FLEXER Annette Loya NP MICROBIOLOGY - GENERAL ORDE RABLES Final Result Performing Organization Address City/[facility]/ZIP Co de Phone Number [facility] [address] [place] [address], [place] [phone] [facility] [address] [place] [address], * LIPASE (03/23/2024 1:56 PM OUTSOLE FLEXER) Pathologist [facility] LIPASE 65 13 - 75 UNITS/L 03/23/2024 2:25 PM OUTSOLE FLEXER [facility] 03/23/2024 1:56 PM OUTSOLE FLEXER Annette Loya NP LABORATORY Final Resul t [facility] [address] [place] [address], [place] [phone] * COLONOSCOPY GENERIC (SCAN ORDER) (03/05/2023) 03/05/2023 [facility] Scanned SCANNING Final Resu lt * HEPATITIS C ANTIBODY (01/09/2023 9:28 AM CDT) HEPATITIS C AB NON-REACTI VE NON-REACT JANETH 01/09/2023 6:48 PM CDT [facility] Comment: ANTIBODIES TO HCV NOT DETECTED. DOES NOT EXCLUDE THE POSSIBILITY OF EXPOSURE TO HCV. 01/09/2023 9:28 AM CDT Macario Patel MD LABORATORY Final Result Performing Organization Address City/State/[facility] Co de Phone Number [facility] [address] [place] [address], [phone] from Last 3 Months or Most Recently Relevant to Health Maintenance Insurance [facility] Advance Directives * Full Code (Latest Code Status on File) Date Activated Date Inactivated Comments 03/26/2024 4:24 AM 03/27/2024 12:55 PM Care Teams Commercial Loan Processor Relationship Specialty Start Date End Date Macario Patel MD [address] [phone] PCP - General 03/23/11
--- OUTSIDE RECORDS SUMMARY | 2024-05-06 13:55 | XMS_ITS | Encounter Summary ---
Author Organization [facility] Address [address] [place] [address] Care Team Providers Care Health Policy Analyst Name Role Phone Unavailable Primary Care Provider Unavailabl e Encounter Details Date Type Department Care Team (Late st Contact Info) Description 04/08/2005 Outpatient Historical [facility] Bia Rubio MD [address] [place] [address] REG ENTERITIS, LG INTEST (CMS/HCC) (Primary Dx) Social History Tobacco Use Types Packs/Day Years Used Date Smoking Tobacco: Never Assessed Sex and Gender Information Value Date Recorded Sex Assigned at Not on file Legal Sex Male 4:47 AM RN FLIGHT Gender Identity Not on file Sexual Orientation Not on file documented as of this encounter Plan of Treatment Not on file documented as of this encounter Visit Diagnoses Diagnosis Regional enteritis of large intestine (CMS/HCC)- Primary Regional enteritis of large intestine documented in this encounter
--- OUTSIDE RECORDS SUMMARY | 2024-05-06 13:55 | XMS_ITS ---
Author Organization [employer], [facility] Address [address] [place] [address] Care Team Providers Care Space Control Supervisor Name Role Phone Macario Patel MD Primary Care Provider Unavail Krishna Rodriguez Unavailable [phone] REASON FOR VISIT Awaiting pts labs from PCP Encounters Encounter Location Date Provider Diagnosis [facility], [facility] [address] [place] [address] 08/15/2023 Krishna Burton Plan Of Treatment No Information Progress Notes * Myke RITCHIE HDOB:1960 (63 yo M)Acc No.[id number]:08/15/2023 Patient: Myke Vaughn :1960 A ge:63 Y S ex:Male Address:[address], [place] [address] * true * Date: Generated for Printi ng/Faxing/eTransmitting on: 0 05/06/2024 01:55 PM UTILITY AIRCREWMAN
--- OUTSIDE RECORDS SUMMARY | 2024-05-06 13:55 | XMS_ITS | Encounter Summary ---
Author Organization [facility] Address 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 Gender Identity Not on file Sexual Orientation Not on file documented as of this encounter Plan of Treatment Not on file documented as of this encounter Procedures Procedure Name Priority Date/Time Associated Diagnosis Comments PATHOLOGY Routine 07/04/2008 1:12 PM CDT documented in this encounter Results * PATHOLOGY (07/04/2008 1:12 PM CDT) FINAL REPORT [address] [address] Patient: ANCA RITCHIE : 1960 Procedure Date: 07/04/2008 Accession Date: 07/04/2008 Case No: [id number] Ordering Dr: BIA RUBIO Case types AW, BW, FW, NW and SH are performed by [facility], [place], [place] SURGICAL PATHOLOGY & NON-GYNECOLOGIC CYTOPATHOLOGY REPORT DIAGNOSIS RECTUM, ENDOSCOPIC BIOPSY: - CHRONIC PROCTITIS WITH MODERATE ACTIVITY (SEE MICROSCOPIC). - INDEFINITE FOR DYSPLASIA. Specimen Description: Rectal biopsy. Operative Procedure: Colonoscopy. Patient Information/History/ Diagnosis: Chronic established inflammatory bowel disease. Rule out dysplasia. Gross: The specimen is received in a container labeled Anca Ritchie, rectal colon biopsy. It consists of 13 pieces of pringle tissue ranging from 0.1 to 0.4 cm in greatest dimension. The specimen is submitted entirely labeled A1. [facility] 07.04.2008 05:32 pm Microscopic: The slides are labeled [id number], Anca Ritchie Vilma. All mucosal samples are characterized by the presence of a generalized increase in chronic inflammatory cells throughout the lamina propria in association with crypt architectural distortion. Scattered neutrophils are present as well, predominantly within the lamina propria. No granulomas are identified. In approximately one-third of the mucosal samples, there is significant cytologic atypia. While the atypia is indefinite for dysplasia, it is probably reactive in nature. The atypia is more pronounced in the base of the crypts and is, in all instances, associated with a significant active inflammatory infiltrate. This case has been reviewed at intradepartmental case conference. [facility] 07.05.2008 11:37 am Staging Form: No. ELECTRONIC SIGNATURE FOR CHANCE LANG M.D.- 07/06/08 05:08 pm INTERFACE SYSTEM 07/04/2008 1:12 PM CDT us Bia Rubio MD PATHOLOGY/CYTOLOGY ORDERABLE S Final Result INTERFACE SYSTEM Refer to clinic/hospital department documented in this encounter Visit Diagnoses Not on filedocumented in this encounter
--- OUTSIDE RECORDS SUMMARY | 2024-05-06 13:55 | XMS_ITS ---
Author Organization [employer], [facility] Address [address] [place] [address] [address] [place] [address] Care Team Providers Care Retail Helper Name Role Phone Macario Patel MD Primary Care Provider Unavail Krishna Rodriguez Unavailable [phone] REASON FOR VISIT Attach labs Encounters Encounter Location Date Provider Diagnosis [facility], [address] [place] [address] 03/30/2024 Krishna Burton Plan Of Treatment No Information Progress Notes * Myke RITCHIE HDOB:1960 (64 yo M)Acc No.[id number]:03/30/2024 Patient: Myke WHATLEY :1960 A ge:64 Y S ex:Male Address:[address], [place] [address] * true * Date: Generated for Printi ng/Faxing/eTransmitting on: 0 05/06/2024 01:54 PM HVAC SHEET METAL INSTALLER
--- OUTSIDE RECORDS SUMMARY | 2024-05-06 13:55 | XMS_ITS | Clinical Summary ---
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
--- OUTSIDE RECORDS SUMMARY | 2024-05-06 13:55 | XMS_ITS | Encounter Summary ---
Author Organization [facility] Address 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
--- OUTSIDE RECORDS SUMMARY | 2024-05-06 13:55 | XMS_ITS ---
Author Organization [employer], [facility] Address [address] [place] [address] [address] [place] [address] Care Team Providers Care Biodiesel Operations Manager Name Role Phone Macario Patel MD Primary Care Provider Unavail able Krishna Burton Unavailable [phone] Dedra Joiner Unavailable [phone] Results Component Value Reference Range Notes CMP: COMPLETE METABOLIC PANE L Reviewed date:03/30/2024 02:44:34 PM Interpretation: Performing Lab: Notes/Report: CBC With Differential/Platel et Reviewed date:03/30/2024 02:47:26 PM Interpretation: Performing Lab: Notes/Report: REASON FOR VISIT needs labs Encounters Encounter Location Date Provider [facility], [address] [place] [address] 08/15/2023 Dedra Joiner Crohns disease of talita th small and large intestine without complication K50.80 Assessments Encounter Date Diagnosis (ICD Code) Assessment [...] last week were normal. Plan Of Treatment Future Test Test Name Order Date CMP: COMPLETE METABOLIC PANEL 11/16/2023 CBC With Differential/Platelet 4 Progress Notes * Myke RITCHIE HDOB:1960 (63 yo M)Acc No.[id number]:08/15/2023 Patient: Myke Vaughn :1960 A ge:63 Y S ex:Male Address:[facility] [address] [place] [address] Subjective: * Chief Complaints: * N eeds labs * Medical History: * Surgical History: * Hospitalization/Major Diagno stic Procedure: * Medications: Objective: Assessment: * Assessment: 1. C rohns disease of both small and large intestine without complication - K50.80 (Primary), History of Crohn's disease diagnosed in 1996. His last colonoscopy took place in October 2016 and revealed ileitis. Small bowel series was obtained at that time and was also normal. He has been maintained on mercaptopurine and Lialda without any difficulties. Labs obtained last week were normal. Plan: * Treatment: * Procedure Codes: * true * Date: Generated for Mitra faulkner/Sallie/Rafaelaitting on: 0 05/06/2024 01:55 PM ELECTRICAL SYSTEMS DESIGN ENGINEER
--- OUTSIDE RECORDS SUMMARY | 2024-05-06 13:56 | XMS_ITS | Encounter Summary ---
Author Organization [facility] Address [address] [place] [address] Care Team Providers Care Milk Runner Name Role Phone Unavailable Primary Care Provider Unavailabl e Encounter Details Date Type Department Care Team (Late st Contact Info) Description 05/15/2005 Outpatient Historical [facility] [address] 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
--- OUTSIDE RECORDS SUMMARY | 2024-05-06 13:56 | XMS_ITS | Encounter Summary ---
Author Organization [facility] Address [address] [place] [address] Care Team Providers Care Machinist Apprentice Wood Name Role Phone Unavailable Primary Care Provider Unavailabl e Encounter Details Date Type Department Care Team (Latest Contact Info) Description 06/05/2005 Inpatient Historical [facility] Fawad Deluna MD NO ADDRESS ON FILE Benign Neoplasm of Colon (Primary Dx) Social History Tobacco Use Types Packs/Day Years Used Date Smoking Tobacco: Never Assessed Sex and Gender Information Value Date Recorded Sex Assigned at Not on file Legal Sex Male 4:47 AM ANVILSMITH Gender Identity Not on file Sexual Orientation Not on file documented as of this encounter Plan of Treatment Not on file documented as of this encounter Procedures Procedure Name Priority Date/Time Associated Diagnosis Comments CBC WITH DIFFERENTIAL Routine 06/06/2005 4:45 AM ANVILSMITH CBC WITH DIFFERENTIAL Routine 06/06/2005 4:45 AM ANVILSMITH BASIC METABOLIC PANEL Routine 06/06/2005 4:45 AM ANVILSMITH CEA Routine 06/05/2005 4:36 AM ANVILSMITH CBC WITH DIFFERENTIAL Routine 05/15/2005 11:30 AM ANVILSMITH CBC WITH DIFFERENTIAL Routine 05/15/2005 11:30 AM ANVILSMITH COMPREHENSIVE METABOLIC PANEL Routine 05/15/2005 11:30 AM ANVILSMITH documented in this encounter Results * (ABNORMAL) CBC WITH DIFFERENTIAL (06/06/2005 4:45 AM ANVILSMITH) NEUTROPHILS 78(H) 45 - 70 % INTERFAC E SYSTEM LYMPHOCYTES 9(L) 16 - 45 % INTERFAC E SYSTEM MONOCYTES 13 3 - 13 % INTERFACE SYSTEM EOSINOPHILS 0 0 - 7 % INTERFAC E SYSTEM BASOPHILS 0 0 - 2 % INTERFACE SYSTEM NEUTROPHIL ABSOLUTE 7.74(H) 1.90 - 7.00 K/uL INTERFACE SYSTEM LYMPHOCYTE ABSOLUTE 0.85 0.70 - 4.50 K/uL INTERFACE SYSTEM MONOCYTE ABSOLUTE 1.28 0.10 - 1.30 K/uL INTERFACE SYSTEM EOSINOPHIL ABSOLUTE 0.00 0.00 - 0.70 K/uL INTERFACE SYSTEM BASOPHILS ABSOLUTE 0.00 0.00 - 0.20 K/uL INTERFACE SYSTEM 06/06/2005 4:45 AM ANVILSMITH Fawad Deluna MD HEMATOLOGY ORDERABLES Final Result Performing Organization Address [facility] Phone Number INTERFACE SYSTEM Refer to clinic/hospital department * (ABNORMAL) CBC WITH DIFFERENTIAL (06/06/2005 4:45 AM ANVILSMITH) Pathologist [facility] WBC 9.9(H) 4.0 - 9.8 K/uL INTERFACE SYSTEM RBC 3.82(L) 4.50 - 5.40 M/uL INTERFACE SYSTEM HEMOGLOBIN 11.7(L) 13.6 - 16.5 g/dL INTERFACE SYSTEM HEMATOCRIT 33.3(L) 40.0 - 48.0 % INTERFACE SYSTEM MCV 87.2 82.0 - 99.0 fL INTERFACE SYSTEM MCH 30.6 27.2 - 32.6 pg INTERFACE SYSTEM MCHC 35.1 31.5 - 35.5 % INTERFACE SYSTEM RDW 13.4 11.5 - 14.5 % INTERFACE SYSTEM RDW-STDEV 43.0 37.1 - 48.7 fL INTERFACE SYSTEM PLATELETS 179 140 - 350 K/uL INTERFACE SYSTEM MPV 10.2 9.3 - 12.4 fL INTERFACE SYSTEM 06/06/2005 4:45 AM ANVILSMITH Fawad Deluna MD HEMATOLOGY ORDERABLES Final Result Performing Organization Address [facility] Phone Number INTERFACE SYSTEM Refer to clinic/hospital department * (ABNORMAL) BASIC METABOLIC PANEL (06/06/2005 4:45 AM ANVILSMITH) GLUCOSE 130(H) 65 - 109 mg/dL INTERFACE SYSTEM CREATININE 1.0 0.5 - 1.3 mg/dL INTERFACE SYSTEM CALCIUM 7.9(L) 8.6 - 10.2 mg/dL INTERFACE SYSTEM BUN 18 6 - 20 mg/dL INTERFACE SYSTEM SODIUM 136 135 - 145 mmol/L INTERFACE SYSTEM POTASSIUM 4.6 3.5 - 4.9 mmol/L INTERFACE SYSTEM CHLORIDE 102 96 - 108 mmol/L INTERFACE SYSTEM CO2 27 22 - 30 mmol/L INTERFACE SYSTEM 06/06/2005 4:45 AM ANVILSMITH Fawad Deluna MD CHEMISTRY ORDERABLES Final Result Performing Organization Address [facility] Phone Number INTERFACE SYSTEM Refer to clinic/hospital department * CEA (06/05/2005 4:36 AM ANVILSMITH) Pathologist [facility] CEA 1.8 ng/mL INTERFACE SYSTEM Comment: Reference Range: Non-smoker: </= 3.4 ng/mL Smoker: </= 4.3 ng/mL Values from different assay methods cannot be used interchangeably becau se the concentration of CEA in any given specimen can vary due to differences in assay methods and reagent specificity. Serum CEA levels, regardless of value, should not be interpreted as absolute evidence of the presence or absence of malignant disease. 06/05/2005 4:36 AM ANVILSMITH Fawad Deluna MD CHEMISTRY ORDERABLES Final Result Performing Organization Address [facility] de Phone Number INTERFACE SYSTEM Refer to clinic/hospital department * COMPREHENSIVE METABOLIC PANEL (05/15/2005 11:30 AM ANVILSMITH) GLUCOSE 86 65 - 109 mg/dL INTERFACE SYSTEM CREATININE 1.0 0.5 - 1.3 mg/dL INTERFACE SYSTEM CALCIUM 9.3 8.6 - 10.2 mg/dL INTERFACE SYSTEM AST 27 12 - 38 U/L INTERFACE SYSTEM ALKALINE PHOSPHATASE 87 40 - 129 U/L INTERFACE SYSTEM BILIRUBIN TOTAL 0.5 0.2 - 1.0 mg/dL INTERFACE SYSTEM ALBUMIN 4.4 3.4 - 4.8 g/dL INTERFACE SYSTEM TOTAL PROTEIN 7.5 6.3 - 8.6 g/dL INTERFACE SYSTEM ALT 30 0 - 41 U/L INTERFACE SYSTEM BUN 17 6 - 20 mg/dL INTERFACE SYSTEM SODIUM 140 135 - 145 mmol/L INTERFACE SYSTEM POTASSIUM 4.2 3.5 - 4.9 mmol/L INTERFACE SYSTEM CHLORIDE 104 96 - 108 mmol/L INTERFACE SYSTEM CO2 29 22 - 30 mmol/L INTERFACE SYSTEM 05/15/2005 11:3 0 AM ANVILSMITH Fawad Deluna MD CHEMISTRY ORDERABLES Final Result Performing Organization Address [facility] Phone Number INTERFACE SYSTEM Refer to clinic/hospital department * CBC WITH DIFFERENTIAL (05/15/2005 11:30 AM ANVILSMITH) NEUTROPHILS 59 45 - 70 % INTERFAC E SYSTEM LYMPHOCYTES 28 16 - 45 % INTERFAC E SYSTEM MONOCYTES 10 3 - 13 % INTERFACE SYSTEM EOSINOPHILS 3 0 - 7 % INTERFAC E SYSTEM BASOPHILS 0 0 - 2 % INTERFACE SYSTEM NEUTROPHIL ABSOLUTE 2.63 1.90 - 7.00 K/uL INTERFACE SYSTEM LYMPHOCYTE ABSOLUTE 1.24 0.70 - 4.50 K/uL INTERFACE SYSTEM MONOCYTE ABSOLUTE 0.43 0.10 - 1.30 K/uL INTERFACE SYSTEM EOSINOPHIL ABSOLUTE 0.13 0.00 - 0.70 K/uL INTERFACE SYSTEM BASOPHILS ABSOLUTE 0.01 0.00 - 0.20 K/uL INTERFACE SYSTEM 05/15/2005 11:3 0 AM ANVILSMITH Fawad Deluna MD HEMATOLOGY ORDERABLES Final Result Performing Organization Address [facility] Phone Number INTERFACE SYSTEM Refer to clinic/hospital department * (ABNORMAL) CBC WITH DIFFERENTIAL (05/15/2005 11:30 AM ANVILSMITH) WBC 4.4 4.0 - 9.8 K/uL INTERFACE SYSTEM RBC 4.95 4.50 - 5.40 M/uL INTERFACE SYSTEM HEMOGLOBIN 15.3 13.6 - 16.5 g/dL INTERFACE SYSTEM HEMATOCRIT 42.3 40.0 - 48.0 % INTERFACE SYSTEM MCV 85.5 82.0 - 99.0 fL INTERFACE SYSTEM MCH 30.9 27.2 - 32.6 pg INTERFACE SYSTEM MCHC 36.2(H) 31.5 - 35.5 % INTERFACE SYSTEM RDW 13.3 11.5 - 14.5 % INTERFACE SYSTEM RDW-STDEV 41.6 37.1 - 48.7 fL INTERFACE SYSTEM PLATELETS 191 140 - 350 K/uL INTERFACE SYSTEM MPV 10.5 9.3 - 12.4 fL INTERFACE SYSTEM 05/15/2005 11:3 0 AM ANVILSMITH us Fawad Deluna MD HEMATOLOGY ORDERABLES Final Result INTERFACE SYSTEM Refer to clinic/hospital department documented in this encounter Visit Diagnoses Diagnosis Benign neoplasm of colon- Primary documented in this encounter
--- OUTSIDE RECORDS SUMMARY | 2024-05-06 13:56 | XMS_ITS | Encounter Summary ---
Author Organization [facility] Address [address] [place] [address] Care Team Providers Care Associate Financial Advisor Name Role Phone Unavailable Primary Care Provider Unavailabl e Encounter Details Date Type Department Care Team (Late st Contact Info) Description 07/21/2007 Outpatient Historical [facility] Bia Rubio MD [address] [place] [address] Social History Tobacco Use Types Packs/Day Years Used Date Smoking Tobacco: Never Assessed Sex and Gender Information Value Date Recorded Sex Assigned at Not on file Legal Sex Male 4:47 AM FITTER UP Gender Identity Not on file Sexual Orientation Not on file documented as of this encounter Plan of Treatment Not on file documented as of this encounter Procedures Procedure Name Priority Date/Time Associated Diagnosis Comments PATHOLOGY Routine 07/21/2007 11:21 AM CDT documented in this encounter Results * PATHOLOGY (07/21/2007 11:21 AM CDT) FINAL REPORT [address] [address] Patient: ANCA RITCHIE : 1960 Procedure Date: 07/21/2007 Accession Date: 07/21/2007 Case No: [id number] Ordering Dr: BIA RUBIO Case types AW, BW, FW, NW and SH are performed by [facility], [place], [place] SURGICAL PATHOLOGY & NON-GYNECOLOGIC CYTOPATHOLOGY REPORT DIAGNOSIS LARGE INTESTINE, RECTUM, COLONOSCOPIC BIOPSY: - CHRONIC ACTIVE COLITIS, MODERATELY SEVERE. - INDEFINITE FOR DYSPLASIA. Specimen Description: Rectal biopsy. Operative Procedure: Colonoscopy. Patient Information/Histo ry/Diagnosis: Chronic established inflammatory bowel disease. Rule out dysplasia. Gross: Received in one container labeled Anca Ritchie., rectum biopsy are thirteen pringle tissue fragments ranging from 0.1 cm to 0.4 cm in greatest dimension. The specimen is submitted in block A1. [facility] 07.21.2007 01:04 pm Microscopic: The slide is labeled [id number], Anca Ritchie. The biopsy from the rectum displays colonic mucosa with areas of chronic active colitis of moderately severe degree. Crypts are and partially effaced by a heterogeneous inflammatory cell infiltrate. Only one area of the biopsy appears spared from the inflammatory cell reaction. There is moderate crypt disorganization. The features are indefinite for dysplasia. Dr. Nabil Cervantes has also seen this case and agrees. [facility] 07.22.2007 03:13 pm Staging Form: No. ELECTRONIC SIGNATURE FOR CELESTE LARA M.D.- 07/22/07 03:44 pm INTERFACE SYSTEM 07/21/2007 11:2 1 AM CDT us Bia Rubio MD PATHOLOGY/CYTOLOGY ORDERABLE S Final Result INTERFACE SYSTEM Refer to clinic/hospital department documented in this encounter Visit Diagnoses Not on filedocumented in this encounter
== END 2024-05-06 13:47 | disposition home or self-care (01) ==
LOC: ANHIMG 13:51
PROVIDERS: PCP Internal Medicine; Visit Provider Nurse Practitioner Family
DX: N20.1 Calculus of ureter (principal); K44.9 Diaphragmatic hernia without obstruction or gangrene
CPT/HCPCS: 74018